=== PATIENT | male | born 1975 | race Two or more races ===

== ENCOUNTER → 2016-10-18 | Outpatient (CLI) | payer SELFPAY | END | disposition disaster alternative care site (69) | LOC: GRAD 07:45 | DX: M25.562 Pain in left knee (principal); S83.242A Other tear of medial meniscus, current injury, left knee, initial encounter; S83.412A Sprain of medial collateral ligament of left knee, initial encounter; S80.221A Blister (nonthermal), right knee, initial encounter; X58.XXXA Exposure to other specified factors, initial encounter ==